=== PATIENT | male | born 1985 | race Caucasian/White ===

== ENCOUNTER 2019-04-14 13:36 | Emergency (ER) | payer OTHER ==
[~2019-04-14] VITALS: Ht 180.3 cm; Wt 65.8 kg
[~2019-04-14 13:36] MED LIST: BENTYL 10 MG CA10 M1 PO; BENTYL20 MG; BENTYL20 MG PO; CIPRO250 M1 PO; CIPROFLOXACIN500 M1 PO; FLAGYL500 MG PO; HYDROCODON-ACE1 EAC7 PO; HYDROCODONE-AP1 EAC6 PO; MEDROLDOSEPACK PO; NOHOMEMEDICATIONS; NORCO 5-325 TA1 EACH PO; NORFLEX100 MG PO; PHENERGAN 25 MG25 M1 PO; PREDNISONE 10 M10 M1 PO; PREDNISONE 10 M10 MG PO; PREDNISONE 20 M20 M1 PO; PREDNISONE 20 M20 MG PO; PREDNISONE50 MG PO; TORADOL 10 MG T10 MG PO; TRAMADOL 50 MG50 MG; TRAMADOL 50 MG50 MG PO; ULTRAM 50MG TAB50 MG PO; ZOFRAN ODT4 MG PO; ZOFRAN ODT4 MG SUBLING; ZOFRAN4 MG PO
[2019-04-14] MEDS ORDERED: BUPRENORPHIN-N1 EACH PO (13:45)
[2019-04-14 13:55] LABS: HEMATOCRIT 42.6 % (42.0-52.0); HEMOGLOBIN 13.3 gm/dL (14.0-18.0); MCH 23.4 pg (26.0-34.0); MCHC 31.2 g/dL (28.0-37.0); MPV 7.2 fl. (7.2-11.1); PLATELET COUNT* 734 thou/uL (150-400); RBC 5.68 mil/uL (4.50-6.00); WBC 21.1 thou/uL (4.0-11.0)
[2019-04-14 14:06] LABS: CALCIUM 8.9 mg/dL (8.5-10.1)
[2019-04-14 14:07] LABS: URINE BILIRUBIN NEGATIVE (Negative); URINE BLOOD NEGATIVE (Negative); URINE CLARITY CLEAR; URINE COLOR YELLOW; URINE GLUCOSE-RANDOM NEGATIVE (Negative); URINE KETONES NEGATIVE (Negative); URINE LEUKOCYTES-REFLEX NEGATIVE (Negative); URINE NITRITE-REFLEX NEGATIVE (Negative); URINE PROTEIN TRACE (Negative); URINE SPECIFIC GRAVITY >= 1.030 (1.005-1.030); URINE UROBILINOGEN 0.2 E.U./dl (0.2-1.0)
[2019-04-14 14:10] LABS: ALBUMIN 3.7 g/dL (3.4-5.0); TOTAL BILIRUBIN 0.3 mg/dL (<0.1-1.0); TOTAL PROTEIN 7.6 g/dL (6.4-8.2)
[2019-04-14 14:16] LABS: NUCLEATED RBCS 0 /100WBC
[2019-04-14 14:34] LABS: AMP/METHAMP POSITIVE (Negative); BARBITURATES Negative (Negative); BENZODIAZEPINES POSITIVE (Negative); COCAINE Negative (Negative); METHADONE Negative (Negative); OPIATES Negative (Negative); PCP Negative (Negative); THC POSITIVE (Negative)
[2019-04-14 14:40] LABS: ABSOLUTE EOSINOPHILS 1.3 thou/uL (0.0-0.7); ABSOLUTE LYMPHOCYTES 2.7 thou/uL (0.8-5.3); ABSOLUTE MONOCYTES 1.3 thou/uL (0.0-1.2); ABSOLUTE NEUTROPHILS 15.8 thou/uL (1.6-8.1); PLATELET ESTIMATE ADEQUATE; TOXIC GRANULATION 3+
[2019-04-14] MEDS ORDERED: CIPRO500 MG PO (16:05)
[2019-04-14] MEDS ORDERED: FLAGYL500 M1 PO (16:05)
[2019-04-14] MEDS ORDERED: ONDANSETRON HCL4 M2 PO (16:05)
[2019-04-14] MEDS ORDERED: PREDNISONE 10 M10 MG PO (16:30)
[2019-04-14 16:47] VITALS: BP 112/89
== END 2019-04-14 16:48 | disposition left against medical advice (07) ==
LOC: M.ERS 13:36
PROVIDERS: Nurse Practitioner Family
DX: K52.9 Noninfective gastroenteritis and colitis, unspecified (principal); K50.90 Crohn's disease, unspecified, without complications; F17.210 Nicotine dependence, cigarettes, uncomplicated; Z79.899 Other long term (current) drug therapy

== ENCOUNTER 2019-05-24 02:46 | Emergency (ER) | payer OTHER ==
[~2019-05-24] VITALS: Ht 177.8 cm; Wt 73.5 kg
[~2019-05-24 02:46] MED LIST changes: +BUPRENORPHIN-N1 EACH PO; +CIPRO500 MG PO; +FLAGYL500 M1 PO; +ONDANSETRON HCL4 M2 PO
[2019-05-24] MEDS ORDERED: ZANTAC 150MG T150 M1 PO (02:54)
[2019-05-24 03:12] VITALS: BP 143/95
== END 2019-05-24 03:15 | disposition home or self-care (01) ==
LOC: M.ERS 02:46
DX: R10.9 Unspecified abdominal pain (principal); K50.90 Crohn's disease, unspecified, without complications; F17.210 Nicotine dependence, cigarettes, uncomplicated